=== PATIENT | female | born 1995 | race African-American/Black ===

== ENCOUNTER 2017-08-03 09:36 | Emergency (ER) | payer OTHER ==
[~2017-08-03] VITALS: Ht 162.6 cm; Wt 62.6 kg
[~2017-08-03 09:36] MED LIST: ALBUTEROL2.5 MG/0.1; APAP500; BACTRIM DS TAB1 EACH PO; CIPROFLOXACIN500 M1 PO; DERMOPLAST SPRA56 ML; IBUPROFEN100 MG/5 M PO; LANOLIN56 GM; NOHOMEMEDICATIONS; PRENATAL VITAM1 EAC2; RANITIDINE15 MG/1 ML; TUCKS1 EAC1; TUMS; ZOFRAN ODT4 MG PO
[2017-08-03 10:38] VITALS: BP 109/61
== END 2017-08-03 10:39 | disposition home or self-care (01) ==
LOC: ER 09:36
DX: O26.893 Other specified pregnancy related conditions, third trimester (principal); S39.012A Strain of muscle, fascia and tendon of lower back, initial encounter; M25.512 Pain in left shoulder; O99.513 Diseases of the respiratory system complicating pregnancy, third trimester; Z3A.36 36 weeks gestation of pregnancy; V49.49XA Driver injured in collision with other motor vehicles in traffic accident, initial encounter; Y93.89 Activity, other specified; Y92.89 Other specified places as the place of occurrence of the external cause; Y99.8 Other external cause status

== ENCOUNTER 2018-08-14 11:00 | Emergency (ER) | payer OTHER ==
[~2018-08-14] VITALS: Ht 162.6 cm; Wt 54.0 kg
[2018-08-14 11:27] LABS: HEMATOCRIT 31.2 % (37.0-47.0); HEMOGLOBIN 9.8 gm/dL (12.0-15.0); MCH 19.6 pg (26.0-34.0); MCHC 31.5 g/dL (28.0-37.0); MCV 62.3 fL (80.0-100.0); PLATELET COUNT 373 thou/uL (150-400); RBC 5.01 mil/uL (4.20-5.00); RDW 17.9 % (10.5-14.5); WBC 12.3 thou/uL (4.0-11.0)
[2018-08-14 11:27] LABS: URINE BILIRUBIN NEGATIVE (Negative); URINE BLOOD 3+ (Negative); URINE CLARITY CLOUDY; URINE COLOR YELLOW; URINE GLUCOSE-RANDOM* NEGATIVE (Negative); URINE KETONES NEGATIVE (Negative); URINE LEUKOCYTES-REFLEX 3+ (Negative); URINE NITRITE-REFLEX POSITIVE (Negative); URINE PROTEIN (DIPSTICK) 2+ (Negative); URINE UROBILINOGEN 0.2 E.U./dl (0.2-1.0)
[2018-08-14 11:35] LABS: CALCIUM 9.5 mg/dL (8.5-10.1); CREATININE 0.9 mg/dL (0.6-1.0); POTASSIUM 3.2 mmol/L (3.5-5.1)
[2018-08-14 11:37] LABS: URINE WBC-REFLEX >25 Many /HPF (0-5)
[2018-08-14 11:38] LABS: BACTERIA-REFLEX 1-9 Few /HPF (None Seen); CASTS None Seen /LPF (None Seen); CRYSTALS None Seen /LPF (None Seen); SQUAMOUS 0-3 Few /LPF (0-3)
[2018-08-14 11:41] LABS: ALBUMIN 4.4 g/dL (3.4-5.0); TOTAL BILIRUBIN 0.2 mg/dL (<0.1-1.0); TOTAL PROTEIN 9.2 g/dL (6.4-8.2)
[2018-08-14 11:50] LABS: ABSOLUTE NEUTROPHILS 10.6 thou/uL (1.4-8.2)
[2018-08-14 11:51] LABS: ANISOCYTOSIS 2+; HYPOCHROMASIA SLIGHT; MICROCYTES 2+
[2018-08-14] MEDS ORDERED: NORCO 5-325 TA1 EAC1 PO (13:36)
[2018-08-14] MEDS ORDERED: KEFLEX500 M1 PO (13:36)
[2018-08-14] MEDS ORDERED: KEFLEX250 MG/5 M PO (13:43)
[2018-08-14] MEDS ORDERED: IBUPROFEN100 MG/52 PO (13:43)
[2018-08-14] MEDS ORDERED: FLAGYL500 M1 PO (15:37)
[2018-08-14 16:00] VITALS: BP 102/56
== END 2018-08-14 16:06 | disposition home or self-care (01) ==
LOC: ER 11:00
PROVIDERS: Nurse Practitioner Family
DX: A59.09 Other urogenital trichomoniasis (principal); N39.0 Urinary tract infection, site not specified; E87.6 Hypokalemia; D64.9 Anemia, unspecified; J45.909 Unspecified asthma, uncomplicated

== ENCOUNTER 2019-01-23 17:36 | Emergency (ER) | payer BC, OTHER ==
[~2019-01-23] VITALS: Ht 162.6 cm; Wt 54.4 kg
[~2019-01-23 17:36] MED LIST changes: +FLAGYL500 M1 PO; +IBUPROFEN100 MG/52 PO; +KEFLEX250 MG/5 M PO; +KEFLEX500 M1 PO; +NORCO 5-325 TA1 EAC1 PO
[2019-01-23 18:26] LABS: URINE BILIRUBIN NEGATIVE (Negative); URINE BLOOD 1+ (Negative); URINE CLARITY CLEAR; URINE COLOR YELLOW; URINE GLUCOSE-RANDOM* NEGATIVE (Negative); URINE KETONES NEGATIVE (Negative); URINE PROTEIN (DIPSTICK) NEGATIVE (Negative); URINE SPECIFIC GRAVITY 1.025 (1.005-1.035); URINE UROBILINOGEN 0.2 E.U./dl (0.2-1.0)
[2019-01-23 18:27] LABS: URINE LEUKOCYTES-REFLEX 2+ (Negative); URINE NITRITE-REFLEX POSITIVE (Negative)
[2019-01-23 18:40] LABS: BACTERIA-REFLEX >30 Many /HPF (None Seen); CASTS None Seen /LPF (None Seen); CRYSTALS None Seen /LPF (None Seen); SQUAMOUS >10 Many /LPF (0-3); URINE RBC 0-2 Rare /HPF (0-2); URINE WBC-REFLEX >25 Many /HPF (0-5); WBC CLUMPS Moderate (None Seen)
[2019-01-23 18:49] VITALS: BP 94/54
[2019-01-23] MEDS ORDERED: MUPIROCIN15 GM TOP (18:52)
[2019-01-23] MEDS ORDERED: TRIDERM454 GM TOP (18:52)
[2019-01-23] MEDS ORDERED: KEFLEX500 M1 PO (18:56)
[2019-01-23] MEDS ORDERED: PHENAZOPYRIDIN200 M2 PO (18:56)
== END 2019-01-23 19:10 | disposition home or self-care (01) ==
LOC: ER 17:36
PROVIDERS: Physician Assistant
DX: N39.0 Urinary tract infection, site not specified (principal); R50.9 Fever, unspecified; J45.909 Unspecified asthma, uncomplicated

== ENCOUNTER 2020-08-13 00:04 | Emergency (ER) | payer OTHER ==
[~2020-08-13] VITALS: Ht 162.6 cm; Wt 54.4 kg
[~2020-08-13 00:04] MED LIST changes: +MUPIROCIN15 GM TOP; +PHENAZOPYRIDIN200 M2 PO; +TRIDERM454 GM TOP
[2020-08-13 03:26] LABS: URINE BILIRUBIN NEGATIVE (Negative); URINE BLOOD TRACE (Negative); URINE CLARITY CLEAR; URINE COLOR YELLOW; URINE GLUCOSE-RANDOM* NEGATIVE (Negative); URINE KETONES NEGATIVE (Negative); URINE NITRITE-REFLEX NEGATIVE (Negative); URINE PROTEIN (DIPSTICK) NEGATIVE (Negative); URINE SPECIFIC GRAVITY 1.015 (1.005-1.035); URINE UROBILINOGEN 0.2 E.U./dl (0.2-1.0)
[2020-08-13 03:29] LABS: URINE LEUKOCYTES-REFLEX 2+ (Negative)
[2020-08-13 03:34] LABS: BACTERIA-REFLEX >30 Many /HPF (None Seen); CASTS None Seen /LPF (None Seen); CRYSTALS None Seen /LPF (None Seen); MUCUS 0-3 Light strn/LPF (None Seen); SQUAMOUS 0-3 Few /LPF (0-3); URINE RBC 3-10 Few /HPF (NONE SEEN); URINE WBC-REFLEX >25 Many /HPF (0-5)
[2020-08-13] MEDS ORDERED: FLAGYL500 M1 PO (03:51)
[2020-08-13 03:58] VITALS: BP 100/66
[2020-08-16] MEDS ORDERED: CEPHALEXIN500 MG PO (18:59)
== END 2020-08-13 03:59 | disposition home or self-care (01) ==
LOC: ER 00:04
PROVIDERS: Emergency Medicine
DX: N76.0 Acute vaginitis (principal); J45.909 Unspecified asthma, uncomplicated

== ENCOUNTER 2020-09-08 17:08 | Emergency (ER) | payer OTHER ==
[~2020-09-08] VITALS: Ht 162.6 cm; Wt 54.4 kg
[~2020-09-08 17:08] MED LIST changes: +CEPHALEXIN500 MG PO
[2020-09-08 17:44] LABS: URINE BILIRUBIN NEGATIVE (Negative); URINE BLOOD 3+ (Negative); URINE CLARITY CLEAR; URINE COLOR YELLOW; URINE GLUCOSE-RANDOM* NEGATIVE (Negative); URINE KETONES TRACE (Negative); URINE PROTEIN (DIPSTICK) 2+ (Negative); URINE SPECIFIC GRAVITY >= 1.030 (1.005-1.035)
[2020-09-08 17:45] LABS: URINE LEUKOCYTES-REFLEX 2+ (Negative); URINE NITRITE-REFLEX POSITIVE (Negative)
[2020-09-08 18:05] LABS: HEMATOCRIT 33.6 % (37.0-47.0); HEMOGLOBIN 10.8 gm/dL (12.0-15.0); MCH 20.7 pg (26.0-34.0); MCV 64.7 fL (80.0-100.0); PLATELET COUNT 235 thou/uL (150-400); RDW 18.2 % (10.5-14.5); WBC 13.8 thou/uL (4.0-11.0)
[2020-09-08 18:10] LABS: ANION GAP 12 mmol/L (7-16); BUN 15 mg/dL (7-18); CALCIUM 9.9 mg/dL (8.5-10.1); CHLORIDE 98 mmol/L (98-107); CO2 27 mmol/L (21-32); CREATININE 0.9 mg/dL (0.6-1.0); GLUCOSE 123 mg/dL (74-106); POTASSIUM 3.3 mmol/L (3.5-5.1); SODIUM 137 mmol/L (136-145)
[2020-09-08 18:15] LABS: ALBUMIN 4.2 g/dL (3.4-5.0); DIRECT BILIRUBIN < 0.1 mg/dL (<0.1-0.2); LIPASE 50 U/L (73-393); SGOT 17 U/L (15-37); SGPT 17 U/L (14-59); TOTAL BILIRUBIN 0.4 mg/dL (0.2-1.0); TOTAL PROTEIN 9.9 g/dL (6.4-8.2)
[2020-09-08 18:27] LABS: BACTERIA-REFLEX >30 Many /HPF (None Seen); MUCUS 0-3 Light strn/LPF (None Seen); SQUAMOUS >10 Many /LPF (0-3)
[2020-09-08 18:28] LABS: CASTS None Seen /LPF (None Seen); CRYSTALS None Seen /LPF (None Seen); URINE RBC 3-10 Few /HPF (NONE SEEN)
[2020-09-08 19:10] LABS: ABSOLUTE NEUTROPHILS 11.7 thou/uL (1.4-8.2); ANISOCYTOSIS 2+; HYPOCHROMASIA 3+; MICROCYTES 3+
[2020-09-08] MEDS ORDERED: ONDANSETRON HCL4 M2 PO (20:37)
[2020-09-08 21:19] VITALS: BP 105/54
== END 2020-09-08 21:20 | disposition home or self-care (01) ==
LOC: ER 17:08
PROVIDERS: Nurse Practitioner
DX: R05 Cough (principal); R10.9 Unspecified abdominal pain; R68.83 Chills (without fever); R19.7 Diarrhea, unspecified; R53.81 Other malaise; J45.909 Unspecified asthma, uncomplicated; Z20.822 Contact with and (suspected) exposure to COVID-19